=== PATIENT | female | born 1975 | race Caucasian/White ===

== ENCOUNTER 2020-02-23 09:30 | Emergency (ER) | payer SELFPAY ==
[~2020-02-23] VITALS: Ht 154.9 cm; Wt 64.4 kg
[2020-02-23 09:41] VITALS: BP 118/71; Ht 154.9 cm; Wt 64.4 kg
== END 2020-02-23 12:10 | disposition home or self-care (01) ==
LOC: ED 09:30
DX: K64.5 Perianal venous thrombosis (principal); Z88.0 Allergy status to penicillin